=== PATIENT | male | born 1975 | race American Indian/Alaskan Native ===

== ENCOUNTER 2020-01-21 09:07 | Outpatient (CLI) | payer BC ==
--- NOTE | 2020-01-21 10:30 | Fluoroscopy Report ---
UPPER GI HISTORY: K21.9Gastro-esophageal reflux disease without esophagitis/[id number]. TECHNIQUE: Single and double contrast barium technique utilized to evaluate the esophagus, stomach, and duodenal C-loop. FINDINGS: To begin the exam, swallowing was evaluated in the lateral position under direct fluorosco py. Swallowing was normal. The esophagus is normal caliber and mucosal pattern throughout. Normal motility. No hiatal hernia or reflux was witnessed during this exam. 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 A small gastric remnant is identified which is unremar kable. There is no obvious ulceration or mass. Anastomosis to jejunal bowel loops appears intact. No evidence for obstruction, stenosis or ulceration. There is rapid transit of the barium contrast agent through proximal small bowel loops which are unremarkable. IMPRESSION: No significant abnormality is identified. No evidence for obstruction or ulceration. Gas tric bypass surgery changes are noted and appear intact. Fluoroscopic time: 2.8 minutes Number of fluoroscopic images: 64 Signer Name: Blake Mendez Jr, MD Signed: 01/21/2020 10:26 AM Workstation Name: [id number]
== END 2020-01-21 09:08 | disposition home or self-care (01) ==
LOC: FLUORO 09:07
PROVIDERS: ATTEND Specialist
DX: K30 Functional dyspepsia (principal); K21.9 Gastro-esophageal reflux disease without esophagitis; Z98.890 Other specified postprocedural states
CPT/HCPCS: 74246